=== PATIENT | female | born 1990 | race Caucasian/White ===

== ENCOUNTER → 2018-10-24 13:50 | Outpatient (CLI) | payer OTHER, SELFPAY ==
[2018-10-24 15:08] LABS: hCG Titer Quant., Serum 556 mIU/mL (<9 non-preg)
== END ==
PROVIDERS: Family Provider Family Medicine; PCP Family Medicine; Referring Provider Advanced Practice Midwife; Visit Provider Advanced Practice Midwife
DX: O20.0 Threatened abortion (principal); Z3A.00 Weeks of gestation of pregnancy not specified
CPT/HCPCS: 36415; 84702

== ENCOUNTER → 2018-10-26 13:36 | Outpatient (CLI) | payer OTHER, SELFPAY ==
[2018-03-14 11:46] VITALS: BMI 18.3
[2018-10-26 14:42] LABS: hCG Titer Quant., Serum 90 mIU/mL (<9 non-preg)
== END ==
PROVIDERS: Family Provider Family Medicine; PCP Family Medicine; Referring Provider Advanced Practice Midwife; Visit Provider Advanced Practice Midwife
DX: O20.0 Threatened abortion (principal); Z3A.00 Weeks of gestation of pregnancy not specified
CPT/HCPCS: 36415; 84702

== ENCOUNTER → 2018-11-02 09:59 | Outpatient (CLI) | payer OTHER, SELFPAY ==
[2018-11-02 11:48] LABS: hCG Titer Quant., Serum 6 mIU/mL (<9 non-preg)
== END ==
PROVIDERS: Family Provider Family Medicine; PCP Family Medicine; Referring Provider Advanced Practice Midwife; Visit Provider Advanced Practice Midwife
DX: O03.9 Complete or unspecified spontaneous abortion without complication (principal)
CPT/HCPCS: 36415; 84702

== ENCOUNTER → 2018-11-06 06:09 | Outpatient (CLI) | payer OTHER, SELFPAY ==
[2018-11-06 07:50] LABS: hCG Titer Quant., Serum 2 mIU/mL (<9 non-preg)
== END ==
PROVIDERS: Family Provider Family Medicine; PCP Family Medicine; Referring Provider Advanced Practice Midwife; Visit Provider Advanced Practice Midwife
DX: O03.9 Complete or unspecified spontaneous abortion without complication (principal)
CPT/HCPCS: 36415; 84702

== ENCOUNTER → 2019-01-08 10:00 | Outpatient (CLI) | payer OTHER, SELFPAY ==
[2019-01-08 11:09] VITALS: BMI 18.3
[2019-01-10 15:39] LABS: HPV Reflexed? NOT INDICATED
== END ==
PROVIDERS: Family Provider Family Medicine; PCP Family Medicine; Referring Provider Nurse Practitioner Women's Health; Visit Provider Nurse Practitioner Women's Health
DX: Z12.4 Encounter for screening for malignant neoplasm of cervix (principal)
CPT/HCPCS: 87624; 88175; G0145

== ENCOUNTER → 2019-09-16 12:55 | Outpatient (CLI) | payer OTHER, SELFPAY ==
[2019-09-16 11:41] VITALS: BMI 18.3
[2019-09-16 13:29] LABS: Absolute Lymphocyte Count 2.16 X10^3/uL (0.83-4.51); Absolute Neutrophil Count 5.9 X10^3/uL (2.0-7.7); Basophil# 0.03 X10^3/uL; Basophil% 0.3 % (0-1); Eosinophil# 0.04 X10^3/uL; Eosinophils% 0.5 % (0-5); Hematocrit 36.1 % (37-47); Hemoglobin 12.6 g/dL (12.0-15.0); Lymphocyte # 2.16 X10^3/ul (4.0); Mean Corp Hgb Conc 34.9 g/dL (32-36); Mean Corpuscular Hgb 29.9 pg (27.0-32.0); Mean Corpuscular Volume 85.5 fL (81-99); Mean Platelet Vol. 10.9 fl (6.2-12.0); Monocyte# 0.47 X10^3/uL; Monocyte% 5.4 % (0-10); NRBC Flagged by Analyzer 0 % (0-5); Neutrophil # 5.92 X10^3/uL (2.7-7.7); Neutrophil % 68.6 % (47-70); Platelet Count 237 K/mm3 (150-450); RBC Distribution Width CV 12.7 % (11.6-14.6); RBC Distribution Width SD 39.2 fl (35.1-43.9); Red Blood Count 4.22 M/mm3 (4.2-5.4); White Blood Count 8.6 K/mm3 (4.4-11.0)
[2019-09-16 15:01] LABS: HIV - WCH Non-Reactive (Nonreactive); Hepatitis B Surface Antigen Non-Reactive (Nonreactive); Rubella IgG 99.4 IU/mL
[2019-09-16 17:10] LABS: Chlamydia Trachomatis by PCR Negative (Negative); Neisserai gonorrhoeae by PCR Negative (Negative); Probe Check PASS; Sample Adequacy Control PASS; Specimen Processing Control PASS
[2019-09-19 01:53] LABS: Rapid Plasmin Reagin (RPR) NONREACTIVE (NONREACTIVE)
== END ==
PROVIDERS: Family Provider Family Medicine; PCP Family Medicine; Referring Provider Obstetrics & Gynecology; Visit Provider Obstetrics & Gynecology
DX: Z34.90 Encounter for supervision of normal pregnancy, unspecified, unspecified trimester (principal)
CPT/HCPCS: 36415; 85025; 86592; 86703; 86762; 86850; 86900; 86901; 87086; 87088; 87340; 87491; 87591

== ENCOUNTER → 2019-10-19 08:18 | Outpatient (CLI) | payer OTHER, SELFPAY ==
[2019-10-14 13:33] VITALS: BMI 18.3
--- NOTE | 2019-10-19 08:27 | US_ITS ---
STUDY: SECOND AND THIRD TRIMESTER OBSTETRICAL ULTRASOUND - LIMITED REASON FOR EXAM: Female, 29 years old vag bleeding with x 1 day LMP: 07/07/2019 PRIOR ULTRASOUND: None. TECHNIQUE: Transabdominal and Transvaginal TECHNICAL QUALITY: Adequate. FINDINGS: There is a single intrauterine fetus. The fetus is in a breech presentation. There is demonstrated cardiac activity with a heart rate of 144 bpm. There is a normal amniotic fluid volume by subjective analysis. The largest amniotic fluid pocket measures 3.1 cm. The placenta is anterior with a complete previa. There are Grade 0 placental changes. The cervix measures 3.6 cm in length. BIOMETRY: BPD: 2.6 cm: 14 weeks, 5 days HC: 10.3 cm: 14 weeks, 6 days AC: 8.5 cm: 14 weeks, 6 days FL: 1.6 cm: 14 weeks, 6 days Age by LMP: 14 weeks, 6 days. ALEXIA by LMP: 03/24/2020. age by current US: 15 weeks, 0 days. ALEXIA by current US: 04/11/2020. Estimated weight: 107 grams, +/- 16 grams, 33 percentile. Gender: Indeterminant US/OB Limited With Biometrics IMPRESSION: 1. Live intrauterine with estimated gestational age by ultrasound of 14 weeks and 6 days with estimated date of confinement of 04/12/2020. 2. Findings consistent with anterior placenta with complete previa. Electronically Signed: Reji Freitas DO at 10:10 EST , Service support ,
== END ==
PROVIDERS: Family Provider Family Medicine; PCP Family Medicine; Referring Provider Obstetrics & Gynecology; Visit Provider Obstetrics & Gynecology
DX: O46.90 Antepartum hemorrhage, unspecified, unspecified trimester (principal); Z3A.14 14 weeks gestation of pregnancy
CPT/HCPCS: 76816

== ENCOUNTER → 2020-01-20 08:41 | Outpatient (CLI) | payer OTHER, SELFPAY ==
[2020-01-06 10:55] VITALS: BMI 18.3
[2020-01-20 09:10] LABS: Absolute Lymphocyte Count 1.58 X10^3/uL (0.83-4.51); Absolute Neutrophil Count 4.8 X10^3/uL (2.0-7.7); Basophil# 0.03 X10^3/uL; Basophil% 0.4 % (0-1); Eosinophil# 0.06 X10^3/uL; Eosinophils% 0.9 % (0-5); Hematocrit 34.6 % (37-47); Hemoglobin 11.7 g/dL (12.0-15.0); Lymphocyte # 1.58 X10^3/ul (4.0); Lymphocyte % 23.1 % (19-41); Mean Corp Hgb Conc 33.8 g/dL (32-36); Mean Corpuscular Hgb 31.3 pg (27.0-32.0); Mean Corpuscular Volume 92.5 fL (81-99); Monocyte# 0.38 X10^3/uL; Monocyte% 5.6 % (0-10); NRBC Flagged by Analyzer 0 % (0-5); Neutrophil # 4.75 X10^3/uL (2.7-7.7); Neutrophil % 69.4 % (47-70); Platelet Count 211 K/mm3 (150-450); RBC Distribution Width CV 13.4 % (11.6-14.6); RBC Distribution Width SD 45.4 fl (35.1-43.9); Red Blood Count 3.74 M/mm3 (4.2-5.4); White Blood Count 6.8 K/mm3 (4.4-11.0)
[2020-01-20 09:34] LABS: Glucose Challenge Gest 1H 50g 109 mg/dL (70-140)
== END ==
PROVIDERS: Obstetrics & Gynecology; PCP Family Medicine; Referring Provider Nurse Practitioner Women's Health; Visit Provider Nurse Practitioner Women's Health
DX: Z34.90 Encounter for supervision of normal pregnancy, unspecified, unspecified trimester (principal)
CPT/HCPCS: 82950; 85025

== ENCOUNTER → 2020-01-20 09:35 | Outpatient (CLI) | payer OTHER, SELFPAY ==
[2020-01-06 10:55] VITALS: BMI 18.3
[2020-01-20 09:12] VITALS: BMI 18.3
--- NOTE | 2020-01-20 09:36 | US_ITS ---
STUDY: SECOND AND THIRD TRIMESTER OBSTETRICAL ULTRASOUND REASON FOR EXAM: Female, 29 years old growth -- previa -- rt pyelectasis LMP: 07/07/2019 TECHNIQUE: Transabdominal TECHNICAL QUALITY: Adequate. PRIOR ULTRASOUND: None. FINDINGS: There is a single intrauterine fetus. The fetus is in a breech presentation. There is demonstrated cardiac activity with a heart rate of 140 bpm. There is a normal amniotic fluid volume. The largest amniotic fluid pocket measures 5.1 cm. The amniotic fluid index (SHABNAM) is cm. The placenta is anterior in location and is not low lying. There are Grade 1 placental changes. The cervix measures 4.1 cm in length. The adnexal regions are not visualized. BIOMETRY: BPD: 6.9 cm: 27 weeks, 5 days HC: 26.2 cm: 28 weeks, 3 days AC: 25.5 cm: 29 weeks, 4 days FL: 5.3 cm: 28 weeks, 0 days CI: 76.53 FL/BPD: 76.48 FL/HC: 20.15 FL/AC: 20.69 HC/AC: 1.03 age by current US: 28 weeks, 1 days. ALEXIA by current US: 04/12/2020. Estimated weight: 1299 grams, +/- 192 grams, 60 %. Age by LMP: 28 weeks, 1 days. ALEXIA by LMP: 04/12/2020. Mild hydronephrosis of the right kidney measuring 6 mm. US/OB Limited With Biometrics IMPRESSION: 1. Living intrauterine of 28 weeks 1 day as described above. 2. Mild hydronephrosis of the right kidney. Electronically Signed: Jose Gerardo MD at 13:31 EDT Tel , Service support ,
== END ==
PROVIDERS: PCP Family Medicine; Referring Provider Nurse Practitioner Women's Health; Visit Provider Nurse Practitioner Women's Health
DX: O44.00 Complete placenta previa NOS or without hemorrhage, unspecified trimester (principal); Z3A.00 Weeks of gestation of pregnancy not specified
CPT/HCPCS: 76816

== ENCOUNTER → 2020-03-17 15:43 | Outpatient (CLI) | payer OTHER, SELFPAY ==
[2020-03-17 13:07] VITALS: BMI 18.3
== END ==
PROVIDERS: PCP Family Medicine; Referring Provider Obstetrics & Gynecology; Visit Provider Obstetrics & Gynecology
DX: Z34.81 Encounter for supervision of other normal pregnancy, first trimester (principal)
CPT/HCPCS: 87081

== ENCOUNTER 2020-04-12 06:56 | Inpatient (IN) | payer OTHER, SELFPAY ==
[2020-04-09 09:08] VITALS: BMI 18.3
[2020-04-12] VITALS (43 sets, daily range): BP systolic 66–122; BP diastolic 31–77; PULSE 68–127; RESP 14–16; TEMP 36.6–37.3; O2SAT 92–100; BMI 26.4
[2020-04-12] MEDS: Lactated Ringers 1,000 ML 50 ML IV (07:50)
[2020-04-12 08:14] LABS: Absolute Lymphocyte Count 2.14 X10^3/uL (0.83-4.51); Absolute Neutrophil Count 5.7 X10^3/uL (2.0-7.7); Basophil# 0.03 X10^3/uL; Basophil% 0.4 % (0-1); Eosinophil# 0.05 X10^3/uL; Eosinophils% 0.6 % (0-5); Hematocrit 37.9 % (37-47); Hemoglobin 12.9 g/dL (12.0-15.0); Lymphocyte # 2.14 X10^3/ul (4.0); Lymphocyte % 25.2 % (19-41); Mean Corpuscular Hgb 31.2 pg (27.0-32.0); Mean Corpuscular Volume 91.8 fL (81-99); Monocyte# 0.49 X10^3/uL; Monocyte% 5.8 % (0-10); NRBC Flagged by Analyzer 0 % (0-5); Neutrophil # 5.72 X10^3/uL (2.7-7.7); Neutrophil % 67.4 % (47-70); Platelet Count 184 K/mm3 (150-450); RBC Distribution Width CV 13.1 % (11.6-14.6); RBC Distribution Width SD 43.2 fl (35.1-43.9); Red Blood Count 4.13 M/mm3 (4.2-5.4); White Blood Count 8.5 K/mm3 (4.4-11.0)
[2020-04-12] MEDS: Lactated Ringers 500 ML 999 ML IV (08:38)
[2020-04-12] MEDS: fentaNYL-bupivacaine (epidural) 100 ML BAG EPIDURAL ×2 (09:15→13:34)
[2020-04-12 09:59] LABS: Probe Check PASS; Specimen Processing Control PASS
[2020-04-12] MEDS: Oxytocin 30 units/NS 500 ml 30 UNITS/500 ML IV.SOLN IV (11:39)
[2020-04-12] MEDS: Lactated Ringers 1,000 ML 200 ML IV (13:33)
--- NOTE | 2020-04-12 14:26 | PCM.HP.OB ---
- Problem List (1) Active labor at term Status: Acute (2) Status: Acute Qualifiers: Comment: carrier, genetic, ntd declined. anatomy reviewed (3) Pyelectasis of fetus on ultrasound Status: Acute Comment: right kidney 6mm. declines NIPT at this time (4) Supervision of normal Status: Acute Qualifiers: Comment: PRR ALEXIA 04/12/20 surprise PC Zoraida, Мария, Steve Vamsi History Date of Admission: 04/12/20 Final ALEXIA: 04/12/20 Gestational age: 40 Weeks and 0 Days History of this : This is a 29 year-old, G5, P3 at 40 weeks gestational age Zentz in active labor 4 cm dilated with regular contractions no vaginal bleeding or loss of fluid she admits good movement. She has had uncomplicated .. Allergies No Known Allergies Allergy (Verified 04/12/20 04:00) Home Medications: Home Medications Vits [Prenatabs FA ] 1 tab PO DAILY 11/01/13 Smoking Status: Never smoker Alcohol: None Number of Fetus(es): 1 NST - FHR Rate Baby A Baseline: 130 Variability:: Moderate Accelerations:: 15 x 15 Decelerations:: None NST Reactive:: Yes FHR Category:: Category I Uterine Activity:: Every 2 to 3 minutes History Past Pregnancies: Past Pregnancies Pregancy History 5 Elective abortions Hx Para 3 Spontaneous abortions 1 Hx # Term Pregnancies Ectopic pregnancies Hx # Pregnancies Multiple births # of living children Past Pregnancies Del. Date Name GA/Weeks Outcome Route Bth Weight Gen Labor Lgth Anesthesia Del [facility] Provider FOB 07/25/11 Zoraida 39 live - full term 7lbs 3oz Female 10 hours epidural [facility] Dr. Geovanni Agustin 11/12/13 Мария 39 live - full term 8lbs 6oz Female 10 hours epidural [facility] Dr. Geovanni Agustin 05/17/16 Steve 39 live - full term 7lbs 11oz Male 10 hours epidural [facility] Dr. Derick Agustin Delivery Date: 07/25/11 On 01/08/19 @ 10:37 Lesli Benton No issues during or delivery. Delivery Date: 11/12/13 On 01/08/19 @ 10:38 Lesli Benton No issues during or delivery. Delivery Date: 05/17/16 On 01/08/19 @ 10:39 Lesli Benton No issues during or delivery. Labs: Mom's Labs & Results 04/12/20 04/12/20 04/12/20 07:45 07:45 08:10 WBC 8.5 RBC 4.13 L Hgb 12.9 Hct 37.9 MCV 91.8 MCH 31.2 MCHC 34.0 RDW Std Deviation 43.2 RDW Coeff of Robb 13.1 Plt Count 184 MPV 11.0 Immature Gran % (Auto) 0.600 Neut % (Auto) 67.4 Lymph % (Auto) 25.2 [place] % (Auto) 5.8 Eos % (Auto) 0.6 Baso % (Auto) 0.4 Absolute Neuts (auto) 5.7 Absolute Lymphs (auto) 2.14 Nucleated RBC % 0 COVID-19 (NASIR) Negative Blood Type A POSITIVE Antibody Screen NEGATIVE Course Did the patient receive Yes care? Labs Blood Type: A RH: POSITIVE RPR/VDRL/Syphilis Nonreactive Rubella status Immune HbSAg Negative Date Done: 09/16/19 Chlamydia Negative Gonorrhea Negative HIV/AIDS Non-Reactive Group B Strep: Negative Current Obstetrical History Gestational Diabetes No Incompetent Cervix No Infertility No IUGR No Macrosomia No Hypertension/Pre-eclampsia No Placenta Previa/Abruption Yes: resolved PTL/PROM No Uterine anomaly No Oligohydramnios No Polyhydramnios No Multiple gestation No Past Medical History Asthma No Diabetes No Hypertension No Heart disease No Mitral valve prolapse No Neurologic/Seizure disorder/ No Migraines Kidney disease No Liver disease No Varicosities No Clotting disorders/Hx of DVT No Thyroid Dysfunction No Other medical diseases No Psychiatric disorders No Major trauma No Abnormal PAP smear No Sleep apnea No Mammogram in the last 2 years No Social History Marital Status: Alleged father Vamsi Hx Smoking No Smoking Status Never smoker Expected Infant Delivery Method: Spontaneous Vaginal Review of Systems Constitutional: Denies: Fever, Malaise Eyes: Denies: Blurred vision, Vision Change HEENT: Denies: Head Aches, Visual Changes Cardiovascular: Denies: Chest Pain, Palpitations Respiratory: Denies: Cough, Shortness of Breath, Wheezing Gastrointestinal: Denies: Abdominal Pain, Diarrhea, Nausea, Vomiting Genitourinary: Denies: Dysuria, Hematuria Musculoskeletal: Denies: Joint Pain, Muscle pain Skin: Denies: Lesions, Rash Neurological: Denies: Blurred vision, Focal weakness, Headaches Psychiatric: Denies: Anxiety, Depression Endocrine: Denies: Heat/ Cold Intolerance Hematologic/ Lymphatic: Denies: Easy Bruising, Easy Bleeding Physical Exam Vitals: Vital Signs Temp Pulse BP Pulse Ox 99.1 F 73 115/63 99 04/12/20 11:45 04/12/20 13:47 04/12/20 13:40 04/12/20 13:47 General: Alert, Cooperative, No apparent distress HEENT: Atraumatic, Normocephalic. Negative for: Thyromegaly, Lymphadenopathy Cardiovascular: Regular rate Lungs: Normal air movement Abdomen: Soft, Non Tender, Gravid Neurological: Deep Tendon Reflexes 2+/4 and Symmetrical, Neuro grossly intact. Negative for: Clonus SENIOR WEALTH ADVISOR: Normal external genitalia. Negative for: Vulvar lesions Estimated gestational size: Appropriate for gestational size Presentation: Cephalic Cervix Dilation (cm): 4 Station: -1 Effacement (%): 70 Assessment/Plan All Active Problems (Last Reviewed 04/09/20 @ 09:08 by Nelli Tiwari) Active labor at term (Acute) Pyelectasis of fetus on ultrasound (Acute) Supervision of normal (Acute) (Acute) Miscarriage (Resolved) Pharyngitis (Resolved) Placenta previa antepartum (Resolved) URI (upper respiratory infection) (Resolved) UTI (urinary tract infection) (Resolved) This is a 29 year-old, G 5P3 at 40 weeks gestational age presents in active labor. Patient presents IAL, plan expectant management for , Pitocin/AROM if needed. Pain management: Plans epidural. GBS negative. Management of any complications: None I have reviewed the [facility] and made any clinically relevant updates.
--- NOTE | 2020-04-12 14:31 | OP.PCM_ITS ---
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 anatomy reviewed (3) Pyelectasis of fetus on ultrasound Status: Acute Comment: right kidney 6mm. declines NIPT at this time (4) Supervision of normal Status: Acute Qualifiers: Comment: PRR ALEXIA 04/12/20 surprise PC Мария Conway Steve Vamsi Report of Operation Date of Procedure: 04/12/20 Vaginal Delivery Maternal Presentation: Active Labor 40 weeks IAL Method of Induction: Pitocin Amniotic Fluid Description: Clear Final ALEXIA: 04/12/20 Final ALEXIA Source: LMP Gestational age: 40 Weeks and 0 Days Date of Procedure: 04/12/20 Pre-Operative Diagnosis: ial Post-Operative Diagnosis: same Surgery/ Procedure Performed: Spontaneous Vaginal Delivery Type of Anesthesia: Epidural Description of Procedure: Patient began pushing and delivered the head in the PATRICIO presentation. The head was delivered atraumatically. The anterior and posterior shoulders delivered without complication followed by the rest of the infant and the was placed on the maternal abdomen. Delayed cord clamping was employed for approximately 60 seconds. Cord was clamped and cut and gentle traction was applied to the cord and the placenta delivered spontaneously immediately following it was noted to be intact with three-vessel cord. The perineum and vagina were inspected and noted to have no laceration. EBL was 100 cc. Patient and tolerated delivery well. Placental Delivery Description: Spontaneous Placenta Disposition: [facility] Cord Vessel Description: 3 Vessels Cord Entanglement: None Estimated Blood Loss: 100 Infant A gender: Male Episiotomy Description: None Laceration: None Medications given after delivery: IV Pitocin Complications: None Multi Select Codes - Urinary/Genital Urinary/Genital CPT Codes: 94759 Vaginal Delivery [facility]
[2020-04-12] MEDS: Oxytocin 30 units/NS 500 ml 30 UNITS/500 ML IV.SOLN 334 UNITS IV (14:58)
[2020-04-12] MEDS: Naproxen 250 MG Tablet 500 MG PO (20:49)
[2020-04-13] VITALS (7 sets, daily range): BP systolic 105–109; BP diastolic 64–71; PULSE 80–84; RESP 16–20; TEMP 36.3–36.6
[2020-04-13] MEDS: Acetaminophen 500 MG Tablet 1000 MG PO (03:27)
--- NOTE | 2020-04-13 08:14 | DCINST_ITS ---
Discharge Diet: No Restrictions Discharge Activity: Return to Normal Activity, May not drive while taking narcotic pain medications., May Shower May resume sexual activity in: 4-6 weeks Call your doctor if your incision/area has: Continuous Slow Oozing, Sudden Increased Bleeding, Increased Pain/ Swelling, Increased Redness, Foul Smelling Discharge Additional Instructions: If you experience any of the following, contact your healthcare provider. * Bleeding that soaks a pad every hour for 2 hours * Fever 100.4 or higher * Unrelieved incision or abdominal pain * Swelling, redness, discharge or bleeding from your incision or episiotomy site * Your incision begins to separate * Problems urinating (including inability to urinate or burning while urinating). * Visual changes * Severe headache * Flu-like symptoms * Pain or redness in one of both of your breasts * Pain, warmth, tenderness or swelling in your legs, especially the calf area * Frequent nausea and vomiting * Symptoms of depression or anxiety If you experience any of the following, call 911 or go to the nearest Emergency Room. * Chest pain * Problems breathing * Seizure activity * Partial or complete paralysis of a body part, slurred speech, weakness or drooping of the face, or a sudden inability to walk or hold your balance Allergies/Adverse Reactions: Allergies No Known Allergies Allergy (Verified 04/12/20 04:00) Medications to take at Discharge Vits [Prenatabs FA ] 1 tab PO DAILY 11/01/13 Ibuprofen [Motrin] 600 mg PO Q6H PRN PRN #30 tab 04/13/20 Naproxen [Naprosyn] 250 - 500 mg PO Q8H PRN PRN #30 tab 04/13/20 The following prescriptions were given: Ibuprofen [Motrin] 600 mg PO Q6H PRN PRN #30 tab PRN Reason: Pain Transmission Status: Pending to [facility] Naproxen [Naprosyn] 250 - 500 mg PO Q8H PRN PRN #30 tab PRN Reason: MILD PAIN Transmission Status: Pending to [id number] Please Follow Up With: Susy Bundy MD - [phone] When: Call to make an appointment with your doctor in 6 weeks. If you had elevated Blood pressure or 4th degree laceration you will need to be seen in 2 weeks. Primary Care Physician: Jose Roberto Merchant MD [Primary Care Provider] - Test Results: Test results from this visit will be discussed in further detail at your follow- up appointment, if applicable.
--- NOTE | 2020-04-13 08:14 | PCM.DCVAG ---
Discharge Diet: No Restrictions Discharge Activity: Return to Normal Activity, May not drive while taking narcotic pain medications., May Shower May resume sexual activity in: 4-6 weeks Call your doctor if your incision/area has: Continuous Slow Oozing, Sudden Increased Bleeding, Increased Pain/ Swelling, Increased Redness, Foul Smelling Discharge Additional Instructions: If you experience any of the following, contact your healthcare provider. Bleeding that soaks a pad every hour for 2 hours Fever 100.4 or higher Unrelieved incision or abdominal pain Swelling, redness, discharge or bleeding from your incision or episiotomy site Your incision begins to separate Problems urinating (including inability to urinate or burning while urinating). Visual changes Severe headache Flu-like symptoms Pain or redness in one of both of your breasts Pain, warmth, tenderness or swelling in your legs, especially the calf area Frequent nausea and vomiting Symptoms of depression or anxiety If you experience any of the following, call 911 or go to the nearest Emergency Room. Chest pain Problems breathing Seizure activity Partial or complete paralysis of a body part, slurred speech, weakness or drooping of the face, or a sudden inability to walk or hold your balance Allergies/Adverse Reactions: Allergies No Known Allergies Allergy (Verified 04/12/20 04:00) Medications to take at Discharge Vits [Prenatabs FA ] 1 tab PO DAILY 11/01/13 Ibuprofen [Motrin] 600 mg PO Q6H PRN PRN #30 tab 04/13/20 Naproxen [Naprosyn] 250 - 500 mg PO Q8H PRN PRN #30 tab 04/13/20 The following prescriptions were given: Ibuprofen [Motrin] 600 mg PO Q6H PRN PRN #30 tab PRN Reason: Pain Transmission Status: Pending to [facility] Naproxen [Naprosyn] 250 - 500 mg PO Q8H PRN PRN #30 tab PRN Reason: MILD PAIN Transmission Status: Pending to [id number] Please Follow Up With: Susy Bundy MD - [phone] When: Call to make an appointment with your doctor in 6 weeks. If you had elevated Blood pressure or 4th degree laceration you will need to be seen in 2 weeks. Primary Care Physician: Jose Roberto Merchant MD [Primary Care Provider] - Test Results: Test results from this visit will be discussed in further detail at your follow-up appointment, if applicable.
--- NOTE | 2020-04-13 08:14 | PCM.PN.OB ---
Patient Problems: Active and Suspected Problems (Last Reviewed 04/09/20 @ 09:08 by Nelli Tiwari) Active labor at term (Acute) Subjective: doing well no complaints pain controlled no CP SOB N V ambulating well tolerating po lochia moderate, going well - Physical Exam Vitals/I&O's: Vital Signs Temp Pulse Resp BP Pulse Ox 97.5 F L 84 16 109/64 100 04/13/20 07:47 04/13/20 07:47 04/13/20 03:28 04/13/20 07:47 04/12/20 15:17 Oxygen Delivery Method Room Air Weight: 135 lb Body Mass Index (BMI) 26.4 Intake and Output for Last 24 Hours 04/11/20 04/12/20 04/13/20 23:59 23:59 23:59 Intake Total 2215.06 / 2215.06 Output Total 2600 / 2600 350 / 350 Balance -384.94 / -384.94 -350 / -350 General: Alert, Oriented x3 Laboratory Results 04/12/20 07:45: WBC 8.5, RBC 4.13 L, Hgb 12.9, Hct 37.9, MCV 91.8, MCH 31.2, MCHC 34.0, RDW Std Deviation 43.2, RDW Coeff of Robb 13.1, Plt Count 184, MPV 11.0, Immature Gran % (Auto) 0.600, Neut % (Auto) 67.4, Lymph % (Auto) 25.2, [place] % (Auto) 5.8, Eos % (Auto) 0.6, Baso % (Auto) 0.4, Absolute Neuts (auto) 5.7, Absolute Lymphs (auto) 2.14, Nucleated RBC % 0 04/12/20 07:45: Blood Type A POSITIVE, Antibody Screen NEGATIVE 04/12/20 08:10: COVID-19 (NASIR) Negative Current Medications Acetaminophen (Tylenol) 1,000 mg PO Q8H PRN PRN PRN Reason: Pain Score 1-3/10 Last Admin: 04/13/20 03:27 Dose: 1,000 mg Documented by: Bisacodyl (Dulcolax) 10 mg RECTAL UD PRN PRN Reason: If no BM Dibucaine (Dibucaine) 1 applic TOPICAL TID PRN PRN; Protocol PRN Reason: Discomfort Hydrocortisone (Hytone) 1 applic TOPICAL TID PRN PRN; Protocol PRN Reason: Discomfort Methylergonovine Maleate (Methergine) 0.2 mg IM X1 PRN PRN Reason: Excess bleeding/uterine atony Naproxen (Naprosyn) 500 mg PO Q8H PRN PRN PRN Reason: Pain Score 1-3/10 Last Admin: 04/12/20 20:49 Dose: 500 mg Documented by: Ondansetron HCl (Zofran) 4 mg IV Q4H PRN PRN PRN Reason: Nausea Oxycodone HCl (Oxyir) 5 - 10 mg PO Q4H PRN PRN PRN Reason: Pain Score 4-10/10 Multivit/Folic Acid/Iron (Prenatabs Fa) 1 tablet PO DAILY@1200 ED Senna/Docusate Sodium (Senokot-S, Iesha-Colace) 1 - 2 tablet PO DAILY PRN PRN PRN Reason: Constipation Simethicone (Mylicon) 80 mg PO PCHS PRN PRN Reason: Indigestion/Stomach pain Sodium Chloride () 5 - 15 ml IV UD PRN PRN Reason: SALINE FLUSH Medical Necessity - Tobacco Use Smoking Status: Never smoker Assessment/Plan All Active Problems (Last Reviewed 04/09/20 @ 09:08 by Nelli Tiwari) Active labor at term (Acute) Pyelectasis of fetus on ultrasound (Acute) Supervision of normal (Acute) (Acute) Miscarriage (Resolved) Pharyngitis (Resolved) Placenta previa antepartum (Resolved) URI (upper respiratory infection) (Resolved) UTI (urinary tract infection) (Resolved) s/p PPD # 1 1. routine post delivery care 2. breast feeding- support given 3. rh positive 4. rubella immune
[2020-04-13] MEDS: Prenatal Vits Tablet 1 TABLET PO (11:51)
== END 2020-04-13 17:00 | disposition home or self-care (01) | DRG 806 ==
LOC: WPOUT 07:00 → WP 07:00
PROVIDERS: Admitting Provider Obstetrics & Gynecology; PCP Family Medicine; Visit Provider Obstetrics & Gynecology
DX: O99.89 Other specified diseases and conditions complicating pregnancy, childbirth and the puerperium (principal); N13.30 Unspecified hydronephrosis; Z37.0 Single live birth; Z3A.40 40 weeks gestation of pregnancy
CPT/HCPCS: 59025; 59050; 85025; 86850; 86900; 86901; 87635; 99218; J7120; G0378; U0003

== ENCOUNTER → 2022-06-23 | Outpatient (CLI) | payer OTHER, SELFPAY ==
[2022-07-02 16:38] LABS: HPV APTIMA, High Risk Negative (Negative)
== END | disposition home or self-care (01) ==
LOC: LABSPEC 06-24 07:24
PROVIDERS: PCP Family Medicine; Visit Provider Obstetrics & Gynecology
DX: Z12.4 Encounter for screening for malignant neoplasm of cervix (principal)
CPT/HCPCS: 87624; 88175; G0145

== ENCOUNTER → 2023-05-19 | Outpatient (CLI) | payer OTHER, SELFPAY ==
[2023-05-22 22:07] LABS: Chlamydia By Nucleic Acid AMP Negative (Negative); Gonococcus By Nucleic Acid AMP Negative (Negative)
== END | disposition home or self-care (01) ==
PROVIDERS: PCP Family Medicine; Referring Provider Advanced Practice Midwife; Visit Provider Advanced Practice Midwife
DX: Z34.90 Encounter for supervision of normal pregnancy, unspecified, unspecified trimester (principal)
CPT/HCPCS: 87086; 87491; 87591

== ENCOUNTER → 2023-05-26 | Outpatient (CLI) | payer OTHER, SELFPAY ==
--- NOTE | 2023-05-26 16:23 | US_ITS ---
EXAM: US FIRST TRIMESTER , TRANSABDOMINAL CLINICAL INDICATION: dating TECHNIQUE: Real-time transabdominal obstetrical ultrasound of the maternal pelvis and a first trimester with image documentation. COMPARISON: None this . FINDINGS: UTERUS/CERVIX: Uterus is 10.5 cm x 6.6 cm x 8.7 cm. There is an intrauterine gestation sac eccentric to the right in the fundus but apparently surrounded by endometrium. Mean sac diameter of 3.0 cm corresponds to 8 weeks 1 days gestation. Small yolk sac of 4 mm and 2.3 cm pole, CRL consistent with 8 weeks 5 days gestation. heart rate 169 bpm. OVARIES: Right ovary 2.7 cm x 1.4 cm x 2.9 cm with documented blood flow and anechoic cystic structure of 1.2 cm. Left ovary 2.2 cm x 1.3 cm x 2 cm with documented peripheral blood flow,. FREE FLUID: No free fluid. US/Init OB < 14Wks US IMPRESSION: Single live intrauterine . Sonographic estimated age 8 weeks 3 days. No complications identified. Electronically Signed: Sidra Fam MD at 8:51 EDT ,
== END | disposition home or self-care (01) ==
LOC: US 16:23
PROVIDERS: PCP Family Medicine; Referring Provider Advanced Practice Midwife; Visit Provider Advanced Practice Midwife
DX: O09.90 Supervision of high risk pregnancy, unspecified, unspecified trimester (principal); Z3A.00 Weeks of gestation of pregnancy not specified
CPT/HCPCS: 76801

== ENCOUNTER → 2023-07-11 | Outpatient (CLI) | payer OTHER, SELFPAY ==
[2023-07-11 11:05] LABS: Absolute Lymphocyte Count 1.78 X10^3/uL (0.83-4.51); Absolute Neutrophil Count 5.8 X10^3/uL (2.0-7.7); Basophil# 0.03 X10^3/uL; Basophil% 0.4 % (0-1); Eosinophil# 0.04 X10^3/uL; Eosinophils% 0.5 % (0-5); Hematocrit 35.5 % (37-47); Hemoglobin 12.4 g/dL (12.0-15.0); Lymphocyte # 1.78 X10^3/ul (0.83-4.51); Lymphocyte % 21.7 % (19-41); Mean Corp Hgb Conc 34.9 g/dL (32-36); Mean Corpuscular Hgb 30.4 pg (27.0-32.0); Mean Platelet Vol. 10.5 fl (6.2-12.0); Monocyte# 0.48 X10^3/uL; Monocyte% 5.9 % (0-10); NRBC Flagged by Analyzer 0 % (0-5); Neutrophil # 5.84 X10^3/uL (2.7-7.7); Neutrophil % 71.1 % (47-70); Platelet Count 276 K/mm3 (150-450); RBC Distribution Width CV 13.2 % (11.6-14.6); RBC Distribution Width SD 41.5 fl (35.1-43.9); Red Blood Count 4.08 M/mm3 (4.2-5.4); White Blood Count 8.2 K/mm3 (4.4-11.0)
[2023-07-11 12:07] LABS: HIV - WCH Non-Reactive (Nonreactive); Hepatitis B Surface Antigen Non-Reactive (Nonreactive); Hepatitis C Antibody Non-Reactive (Nonreactive); Rubella IgG Reactive (Nonreactive); Syphilis Antibodies Non-reactive
== END | disposition home or self-care (01) ==
PROVIDERS: PCP Family Medicine; Referring Provider Advanced Practice Midwife; Visit Provider Advanced Practice Midwife
DX: O09.90 Supervision of high risk pregnancy, unspecified, unspecified trimester (principal); Z3A.00 Weeks of gestation of pregnancy not specified
CPT/HCPCS: 36415; 85025; 86703; 86762; 86780; 86803; 86850; 86900; 86901; 87340

== ENCOUNTER → 2023-08-09 | Outpatient (CLI) | payer OTHER, SELFPAY ==
--- NOTE | 2023-08-09 12:16 | US_ITS ---
INDICATION: anatomy EXAMINATION: Ultrasound US OB Transvaginal TECHNIQUE: Transabdominal pelvic ultrasound was performed. COMPARISON: Prior study dated: 05/26/2023. LMP: Unknown. Beta-hCG: Unknown. Provided EGA: None. FINDINGS: INTRAUTERINE GESTATION(s): Single. HEART MOTION is 150 bpm. BIOMETRIC MEASUREMENTS: HEAD CIRCUMFERENCE: 17.4 cm cm which corresponds to 19 weeks and 6 days. BIPARIETAL DIAMETER: 4.7 cm cm which corresponds to 20 weeks and 2 days. ABDOMINAL CIRCUMFERENCE: 15.5 cm cm which corresponds to 20 weeks and 5 days. FEMORAL LENGTH: 3.2 cm cm which corresponds to 20 weeks. ESTIMATED DUE DATE (ALEXIA): 20 weeks and 1 day ESTIMATED WEIGHT: 350 g +/- 53 g, 81 %tile. PRESENTATION: Breech but variable. AMNIOTIC FLUID INDEX (SHABNAM): Within normal limits but not measured, the largest fluid pocket measures 8.9 cm. BIOPHYSICAL PROFILE (BPP): Not assessed. PLACENTA: Posterior. There is no placenta previa or abruption. CERVIX: The cervix measures 4.1 cm in length. MATERNAL OVARIES: Not seen. FREE FLUID: None. ANATOMY: LATERAL VENTRICLES: Visualized CHOROID PLEXUS: Visualized. MIDLINE FALX: Visualized. CAVUM SEPTUM PELLUCIDI: Visualized. CEREBELLUM: Unremarkable CISTERNA MAGNA: Visualized measuring 5 mm. UPPER LIP: Intact. FOUR CHAMBER HEART VIEW: Unremarkable. STOMACH: Visualized. KIDNEYS: Visualized, no hydronephrosis. URINARY BLADDER: Visualized. UMBILICAL CORD INSERTION into the abdomen: Unremarkable. UMBILICAL CORD vessel number: Normal three vessel cord. SPINE: No posterior spinal defect observed. UPPER AND LOWER EXTREMITIES: Present. GENDER: Not assessed. IMPRESSION: Single live intrauterine with an estimated gestational age of 20 weeks and 1 day. The ALEXIA is 12/26/2023. Electronically Signed: Jet Gomes MD at 10:51 EDT , INDICATION: anatomy EXAMINATION: Ultrasound US OB Transvaginal TECHNIQUE: Transabdominal pelvic ultrasound was performed. COMPARISON: Prior study dated: 05/26/2023. LMP: Unknown. Beta-hCG: Unknown. Provided EGA: None. FINDINGS: INTRAUTERINE GESTATION(s): Single. HEART MOTION is 150 bpm. BIOMETRIC MEASUREMENTS: HEAD CIRCUMFERENCE: 17.4 cm cm which corresponds to 19 weeks and 6 days. BIPARIETAL DIAMETER: 4.7 cm cm which corresponds to 20 weeks and 2 days. ABDOMINAL CIRCUMFERENCE: 15.5 cm cm which corresponds to 20 weeks and 5 days. FEMORAL LENGTH: 3.2 cm cm which corresponds to 20 weeks. ESTIMATED DUE DATE (ALEXIA): 20 weeks and 1 day ESTIMATED WEIGHT: 350 g +/- 53 g, 81 %tile. PRESENTATION: Breech but variable. AMNIOTIC FLUID INDEX (SHABNAM): Within normal limits but not measured, the largest fluid pocket measures 8.9 cm. BIOPHYSICAL PROFILE (BPP): Not assessed. PLACENTA: Posterior. There is no placenta previa or abruption. CERVIX: The cervix measures 4.1 cm in length. MATERNAL OVARIES: Not seen. FREE FLUID: None. ANATOMY: LATERAL VENTRICLES: Visualized CHOROID PLEXUS: Visualized. MIDLINE FALX: Visualized. CAVUM SEPTUM PELLUCIDI: Visualized. CEREBELLUM: Unremarkable CISTERNA MAGNA: Visualized measuring 5 mm. UPPER LIP: Intact. FOUR CHAMBER HEART VIEW: Unremarkable. STOMACH: Visualized. KIDNEYS: Visualized, no hydronephrosis. URINARY BLADDER: Visualized. UMBILICAL CORD INSERTION into the abdomen: Unremarkable. UMBILICAL CORD vessel number: Normal three vessel cord. SPINE: No posterior spinal defect observed. UPPER AND LOWER EXTREMITIES: Present. GENDER: Not assessed. US/OB Anatomy Scan IMPRESSION: Single live intrauterine with an estimated gestational age of 20 weeks and 1 day. The ALEXIA is 12/26/2023. Electronically Signed: Jet Gomes MD at 10:50 EDT ,
== END | disposition home or self-care (01) ==
LOC: OPUS 12:13
PROVIDERS: PCP Family Medicine; Referring Provider Obstetrics & Gynecology; Visit Provider Obstetrics & Gynecology
DX: O09.90 Supervision of high risk pregnancy, unspecified, unspecified trimester (principal); Z3A.00 Weeks of gestation of pregnancy not specified
CPT/HCPCS: 76805; 76817

== ENCOUNTER → 2023-10-03 | Outpatient (CLI) | payer OTHER, SELFPAY ==
[2023-10-03 09:29] LABS: Absolute Lymphocyte Count 1.76 X10^3/uL (0.83-4.51); Absolute Neutrophil Count 4.8 X10^3/uL (2.0-7.7); Basophil# 0.03 X10^3/uL; Basophil% 0.4 % (0-1); Eosinophil# 0.04 X10^3/uL; Eosinophils% 0.6 % (0-5); Hematocrit 35.1 % (37-47); Hemoglobin 11.5 g/dL (12.0-15.0); Lymphocyte # 1.76 X10^3/ul (0.83-4.51); Lymphocyte % 24.9 % (19-41); Mean Corp Hgb Conc 32.8 g/dL (32-36); Mean Corpuscular Hgb 30.3 pg (27.0-32.0); Mean Corpuscular Volume 92.4 fL (81-99); Mean Platelet Vol. 10.3 fl (6.2-12.0); Monocyte# 0.38 X10^3/uL; Monocyte% 5.4 % (0-10); NRBC Flagged by Analyzer 0 % (0-5); Neutrophil # 4.82 X10^3/uL (2.7-7.7); Neutrophil % 68.1 % (47-70); Platelet Count 216 K/mm3 (150-450); RBC Distribution Width CV 13.7 % (11.6-14.6); RBC Distribution Width SD 46.5 fl (35.1-43.9); White Blood Count 7.1 K/mm3 (4.4-11.0)
[2023-10-03 09:47] LABS: Glucose Challenge Gest 1H 50g 119 mg/dL (70-140)
[2023-10-03 10:21] LABS: HIV - WCH Non-Reactive (Nonreactive); Syphilis Antibodies Non-reactive
== END | disposition home or self-care (01) ==
LOC: PAVLAB 09:01
PROVIDERS: PCP Family Medicine; Referring Provider Obstetrics & Gynecology; Visit Provider Obstetrics & Gynecology
DX: O09.90 Supervision of high risk pregnancy, unspecified, unspecified trimester (principal); Z3A.00 Weeks of gestation of pregnancy not specified
CPT/HCPCS: 36415; 82950; 85025; 86703; 86780

== ENCOUNTER → 2023-12-05 | Outpatient (CLI) | payer OTHER, SELFPAY | END | disposition home or self-care (01) | LOC: LABSPEC 12:01 | PROVIDERS: PCP Family Medicine; Referring Provider Obstetrics & Gynecology; Visit Provider Obstetrics & Gynecology | DX: O09.90 Supervision of high risk pregnancy, unspecified, unspecified trimester (principal); Z3A.00 Weeks of gestation of pregnancy not specified | CPT/HCPCS: 87081 ==

== ENCOUNTER 2024-01-01 12:25 | Inpatient (IN) | payer OTHER, SELFPAY ==
[2024-01-01] VITALS (39 sets, daily range): BP systolic 104–137; BP diastolic 61–87; PULSE 64–95; RESP 16–20; TEMP 36.3–37.1; O2SAT 98–100; BMI 26.6
[2024-01-01] MEDS: Lactated Ringers 1,000 ML 50 ML IV (13:15)
[2024-01-01 13:37] LABS: Absolute Lymphocyte Count 1.95 X10^3/uL (0.83-4.51); Absolute Neutrophil Count 5.4 X10^3/uL (2.0-7.7); Basophil# 0.04 X10^3/uL; Basophil% 0.5 % (0-1); Eosinophil# 0.06 X10^3/uL; Eosinophils% 0.8 % (0-5); Hematocrit 36.1 % (37-47); Hemoglobin 12.3 g/dL (12.0-15.0); Lymphocyte # 1.95 X10^3/ul (0.83-4.51); Lymphocyte % 24.8 % (19-41); Mean Corp Hgb Conc 34.1 g/dL (32-36); Mean Corpuscular Hgb 30.4 pg (27.0-32.0); Mean Corpuscular Volume 89.1 fL (81-99); Mean Platelet Vol. 11.4 fl (6.2-12.0); Monocyte# 0.42 X10^3/uL; Monocyte% 5.3 % (0-10); NRBC Flagged by Analyzer 0 % (0-5); Neutrophil # 5.38 X10^3/uL (2.7-7.7); Neutrophil % 68.3 % (47-70); Platelet Count 212 K/mm3 (150-450); RBC Distribution Width CV 12.6 % (11.6-14.6); RBC Distribution Width SD 41.7 fl (35.1-43.9); Red Blood Count 4.05 M/mm3 (4.2-5.4); White Blood Count 7.9 K/mm3 (4.4-11.0)
--- NOTE | 2024-01-01 13:46 | PCM.HP.OB ---
HPI - General General Date of Admission: 01/01/24 HPI Narrative MARLIN SARABIA, is a 33 F who presents at 40.3 with contractions this morning, something just felt off and presented for labor check. +fm. denies lof/vb Maternal Data Information ALEXIA Calculator Estimated Delivery Date Method Current WG Current Estimate 12/29/23 LMP (Certain) 40w 3d Other Estimates 12/31/23 Ultrasound #1 40w 1d PFSH PFSH Medical History (Updated 01/01/24 @ 14:45 by Kelsey Florentino CNM) Shoulder dystocia, delivered Home Medications prenat.vits,lacey,uqh-imll-visuw 1 tab PO DAILY 06/23/22 [History Last Taken 12/31/23] promethazine 12.5 mg tablet 12.5 mg PO Q6H PRN nausea and vomiting #60 tabs 05/19/23 [Rx Last Taken Unknown] ondansetron 4 mg disintegrating tablet 4 mg PO Q4H PRN nausea and vomiting #30 tabs 07/11/23 [Rx Last Taken Unknown] Allergy/AdvReac Type Severity Reaction Status Date / Time No Known Allergies Allergy Verified 12/28/23 15:24 Family History Grandmother Diabetes Rectal cancer Father Colon cancer Surgical History (Updated 01/01/24 @ 13:38 by Casandra Billingsley) [place] teeth removed Social History adopted: No household members: family housing: house number of children: 4 current occupational status: unemployed current occupation: [employer] pets and animals: No history of recent travel: No sexually active: Yes Smoking Status: Never smoker alcohol intake: never substance use type: does not use caffeine: Yes what type of physical activity do you participate in: none seatbelt use: always do you feel safe at home: Yes additional social history: [employer] Patient is stay at home mom History 6 Elective abortions Hx Para 4 Spontaneous abortions 1 Hx # Term Pregnancies Ectopic pregnancies Hx # Pregnancies Multiple births # of living children 4 Past Pregnancies Del. Date Name GA/Weeks Outcome Route Bth Weight Infant Gen Labor Lgth Anesthesia Del Locatn Provider FOB 07/25/11 Zoraida 39 live - full term 7lbs 3oz Female 10 hours epidural [facility] Dr. Geovanni Agustin 11/12/13 Мария 39 live - full term 8lbs 6oz Female 10 hours epidural [facility] Dr. Geovanni Agustin 05/17/16 Steve 39 live - full term 7lbs 11oz Male 10 hours epidural [facility] Dr. Derick Agustin 04/12/20 Bin 40 live - full term Male epidural [facility] EMIR Delivery Date: 07/25/11 Last Updated by: Lesli Benton No issues during or delivery. Delivery Date: 11/12/13 Last Updated by: Lesli Benton No issues during or delivery. Delivery Date: 05/17/16 Last Updated by: Lesli Benton No issues during or delivery. Visit Details Expected Delivery Route/Plan Labor Preferences- CB/BF classes: no labor support person: Vamsi labor intervention preferences: [] pain management options preferred: epidural if requested cut cord/dad catch: yes : yes PP control planned: discussed discussed possible routes of delivery and associated risks: [] special requests: [] Plans Covid status: declined Flu vaccine: declined Tdap vaccine: given Rhogam: NA LARC form signed: declined movement and labor precautions reviewed. Problem list reviewed and updated with the most current plan of care details and appropriate orders placed. Relevant counseling for the gestational age provided. Continue routine care and follow up unless otherwise noted in visit notes/problem list details OB Flowsheet Initial Weight: Not Recorded Date <del>?</del> EGA Weight BP Urine Prot <del>?</del> Glucose FHR FuHt Pres Dilation <del>?</del> Effaced St Visit Note 05/19/23 <del>?</del> 8w 0d 108 lb 112/70 Negative <del>?</del> Negative <del>?</del> KW-handheld US. CRL was 1.44cm =7.6 weeks. formal US ordered for verification. heartbeat visualized. 06/14/23 <del>?</del> 11w 5d 108 lb 128/85 Negative <del>?</del> Negative 153 <del>?</del> JV- no cramping or bleeding. ultrasound at hospital confirmed a normal IUP measuring 8w1d on 05/26. 07/11/23 <del>?</del> 15w 4d 109 lb 6 oz 112/68 Negative <del>?</del> Negative 158 <del>?</del> MH-No VB. Nausea persists. Zofran sent. Declines flu. Will do PN labs today 08/07/23 <del>?</del> 19w 3d 114 lb 8 oz 102/66 Negative <del>?</del> Negative 143 <del>?</del> LC- no vb/cramping. feeling flutters. [facility] anatomy on 08/09. +varicose veins up to groin/labia. will obtain compression stockings. 09/04/23 <del>?</del> 23w 3d 120 lb 6 oz 113/75 Negative <del>?</del> Negative 140 <del>?</del> JV- no lof, vaginal bleeding, or cramping. 10/03/23 <del>?</del> 27w 4d 127 lb 126/78 Negative <del>?</del> Negative 140 27 <del>?</del> SM- no vb lof good fm no regualr ctx tdap given larc signed cbc gct drawn PRR reviewed 10/18/23 <del>?</del> 29w 5d 127 lb 107/73 <del>?</del> 151 <del>?</del> MH-No VB, LOF. Good Fm. Denies concerns 10/31/23 <del>?</del> 31w 4d 131 lb 118/72 Negative <del>?</del> Negative 135 31 <del>?</del> SM- no vb lof good fm no regular ctx varicose veins not bothering her now 11/17/23 <del>?</del> 34w 0d 133 lb 8 oz 115/69 Negative <del>?</del> Negative 135 34 <del>?</del> LC- no concerns, no vb/ctx/lof. good fm. 11/28/23 <del>?</del> 35w 4d 135 lb 2 oz 119/78 Negative <del>?</del> Negative 138 36 <del>?</del> JV- no lof, vaginal bleeding, or dec fm. plan gbs next visit. 12/05/23 <del>?</del> 36w 4d 136 lb 126/79 Negative <del>?</del> Negative 145 37 Cephalic <del>?</del> SM- no vb lof good fm no regular ctxgbs done declines vag exam 12/13/23 <del>?</del> 37w 5d 135 lb 4 oz 114/73 Negative <del>?</del> Negative 140 37.5 Cephalic <del>?</del> JV- no lof, vaginal bleeding, or dec fm. GBS neg. 12/19/23 <del>?</del> 38w 4d 138 lb 8 oz 117/76 Negative <del>?</del> Negative 120 38 Cephalic <del>?</del> KW- no vb/lof/ctx. good fm. declines VE today. 12/26/23 <del>?</del> 39w 4d 137 lb 8 oz 130/89 Negative <del>?</del> Negative 145 39 Cephalic 2 <del>?</del> 80 -2 -3 JV- no lof, vaginal bleeding, or dec fm. rto in 2-3 days for rpt bp check and possible membrane stripping. 12/28/23 <del>?</del> 39w 6d 138 lb 118/80 Negative <del>?</del> Negative 138 38 Cephalic 4 <del>?</del> 80 -2 KW- no vb/lof/ctx. good fm. membrane sweep today NST FHR Rate Baby A Baseline: 140-150 Variability:: Moderate Accelerations:: 15 x 15 Decelerations:: Late (x3 ) NST Reactive:: Non-Reactive FHR Category:: Category II Uterine Activity:: irregular ROS Cardiovascular Cardiovascular: Denies abdominal pain, chest pain, diaphoresis or dyspnea Respiratory/Chest Respiratory/Chest: Denies change in mental status, chest congestion, chest tightness, cough, shortness of breath at rest, shortness of breath with exertion, breast mass, breast pain, breast skin changes, breast swelling, change in breast shape or nipple discharge Genitourinary Genitourinary: Reports change in urinary stream Musculoskeletal Musculoskeletal: Reports none Integumentary Integumentary: Reports none Neurologic Neurologic: Reports none Psychiatric Psychiatric: Reports none Endocrine Endocrinology: Reports none Hematologic/Lymphatic Hematologic/Lymphatic: Reports none Allergic/Immunologic Allergic/Immunologic: Reports none Vital Signs Vital Signs Vital Signs: 01/01/24 10:40 01/01/24 10:40 01/01/24 10:41 Temperature Temperature Source Pulse Rate 82 87 Respiratory Rate Blood Pressure 124/86 H BP Systolic 124 BP Diastolic 86 Pulse Ox 01/01/24 10:41 01/01/24 12:20 01/01/24 12:20 Temperature Temperature Source Pulse Rate 88 Respiratory Rate Blood Pressure 122/84 H BP Systolic 122 BP Diastolic 84 Pulse Ox 99 01/01/24 13:40 01/01/24 13:40 01/01/24 13:40 Temperature 98.4 F Temperature Source Temporal Pulse Rate Respiratory Rate 18 Blood Pressure BP Systolic BP Diastolic Pulse Ox 01/01/24 13:43 01/01/24 13:43 Temperature Temperature Source Pulse Rate 80 Respiratory Rate Blood Pressure 121/76 H BP Systolic 121 BP Diastolic 76 Pulse Ox Weight Weight: 136 lb 9.6 oz Body Mass Index (BMI) 26.6 Physical Exam Const alert, oriented x3 and no apparent distress General Appearance: cooperative, comfortable and well kempt Orientation / Consciousness: awake and oriented to person Exam Limitations: no limitations HEENT normocephalic Neck full ROM Chest inspection of chest normal Resp normal respiratory effort, normal air movement and no retractions Effort and Inspection: able to speak in complete sentences and symmetric chest movement Cardio regular rate Peripheral Pulses: pulses 2+ throughout GI normal to inspection, nondistended, normoactive bowel sounds Inspection: gravid no CVA tenderness and appearance of the vagina normal External Female Exam: normal appearance of the urethra; Negative for external lesion OB / External & Speculum: external exam normal Manual OB Exam: estimated gestational size appropriate and presentation cephalic Uterus Palpation: Negative for uterus tender Extremity normal to inspection Skin no rashes or lesions noted Neuro deep tendon reflexes 2+ bilaterally and gait normal Motor Exam: strength 5/5 throughout and clonus absent Psych Activity / Motor Behavior: appropriate eye contact Speech: normal speech Labs Labs Labs: Blood Type A POSITIVE Antibody Screen NEGATIVE Hct 36.1 % (37-47) L Hgb 12.3 g/dL (12.0-15.0) Obstetrics Ultrasound Syphilis Total Ab Non-reactive Rubella IgG Antibody Reactive (Nonreactive) Hep Bs Antigen Non-Reactive (Nonreactive) Hepatitis C Antibody Non-Reactive (Nonreactive) Chlamydia DNA (NASIR) Negative (Negative) N.gonorrhoeae DNA (NASIR) Negative (Negative) HIV 1&2 Antibody Non-Reactive (Nonreactive) Glucose 1 Hr 50 gm 119 mg/dL (70-140) Rhogam given: No Assessment & Plan (1) Category II heart rate tracing during labor and delivery: COMMENT: at term. IOL with AROM after IVF bolus PLAN: Plan -admit to for cat 2 tracing at 40.3 weeks. -open to epidural but desires unmedicated. -AROM for IOL method- favorable cervix. GBS negative if no cervical change in 2-4 hours will augment with pitocin with cat [address] Pickard updated on admission, exam and poc. agrees with management will comanage for cat 2 tracing. overall low risk pt.
[2024-01-01] MEDS: LACTATED RINGERS 500 ML 999 ML IV ×3 (14:00→16:06)
[2024-01-01 14:13] LABS: Syphilis Antibodies Non-reactive
[2024-01-01] MEDS: fentaNYL-bupivacaine (epidural) 100 ML BAG EPIDURAL (16:57)
[2024-01-01] MEDS: DiphenhydrAMINE 50 MG/ML Syringe IV (18:09)
[2024-01-01] MEDS: Oxytocin 15 Units/NS 250ml 15 UNITS/250 ML IV.SOLN 83 UNITS IV (18:59)
[2024-01-01] MEDS: Oxytocin 10 UNITS/ML Vial IM (19:15)
--- NOTE | 2024-01-01 19:18 | OP.PCM_ITS ---
Assessment & Plan (1) (spontaneous vaginal delivery): COMMENT: LC IOL at 40.3-cat 2 tracing. boy- Magda Maternal Data Information ALEXIA Calculator Estimated Delivery Date Method Current WG Current Estimate 12/29/23 LMP (Certain) 40w 3d Other Estimates 12/31/23 Ultrasound #1 40w 1d Final ALEXIA: 12/29/23 Final ALEXIA Source: LMP Gestational age: 40.3 Vaginal Delivery Maternal Presentation Maternal Presentation: Medically Indicated Induction Maternal Presentation: pt presented with r/o labor, during triage had multiple late decelerations. AROMd and progressed to fully. with pushing had swelling noted to anterior lip that represented. hands and knees and benadryl 50mg resolved and progressed to fully with urge to push. Type of Induction: Amniotomy Operative Information Date of Procedure: 01/01/24 Surgery / Procedure Performed: Spontaneous Vaginal Delivery Type of Anesthesia: Epidural Estimated Blood Loss: 250 Time of Delivery: 18:52 Findings Description of Procedure: Patient began pushing and delivered the head in the PATRICIO presentation. The head was delivered atraumatically. The anterior and posterior shoulders delivered without complication followed by the rest of the infant and the infant was pl aced on the maternal abdomen. Delayed cord clamping was employed for approximately 2 minutes. Cord was clamped and cut and gentle traction was applied to the cord and the placenta delivered spontaneously immediately following it was noted to be intact with three-vessel cord. The perineum and vagina were inspected and noted to have no laceration. EBL was 250cc. Patient and tolerated delivery well. Presentation: Vertex Amniotic Membrane Rupture Type: Artificial Time of Membrane Rupture: 1436 Amniotic Fluid Description: Clear Placental Delivery Description: Spontaneous Placenta Disposition: [facility] Cord Vessel Description: 3 Vessels Cord Entanglement: None Infant A Gender: Male (1 minute): 8 (5 minute): 9 Delayed Cord Clamping: Yes Post Vaginal Delivery Medications Given After Delivery: IV Pitocin Episiotomy Description: None Laceration: None Complication Complications: None Procedures Urinary/Genital [id number]: [id number] Vaginal Delivery [facility]
[2024-01-01] MEDS: Acetaminophen 500 MG Tablet 1000 MG PO (22:17)
[2024-01-01] MEDS: Benzocaine/Lanolin/Aloe Vera 1 SPRAY EACH TOPICAL (22:17)
[2024-01-02 04:52] VITALS: BP 100/68; PULSE 64; RESP 16; TEMP 36.8; O2SAT 98
[2024-01-02] MEDS: Naproxen 500 MG Tablet PO ×2 (05:02→13:40)
--- NOTE | 2024-01-02 07:47 | PN.OBGYN_ITS ---
Subjective Subjective Patient doing well without complaints. Tolerating PO. Ambulating and voiding without difficulty. Feeding well. Denies chest pain, shortness of breath, calf pain/swelling, fevers, chills, lightheadedness. Objective Data Objective Data Vital Signs: Vital Signs Temp Pulse Resp BP Pulse Ox O2 Del Method 98.2 F 64 16 100/68 98 Room Air 01/02/24 04:52 01/02/24 04:52 01/02/24 04:52 01/02/24 04:52 01/02/24 04:52 01/02/24 04:52 Oxygen Delivery Method Room Air Weight: 136 lb 9.6 oz Body Mass Index (BMI) 26.6 Intake & Output: Intake and Output for Last 24 Hours 12/31/23 01/01/24 01/02/24 23:59 23:59 23:59 Intake Total 2345.83 / 2345.83 Output Total 450 / 450 300 / 300 Balance 1895.83 / 1895.83 -300 / -300 Lab / Micro Data Attestation: I reviewed the patient's lab results. 01/01/24 13:15 Labs: Laboratory Results - last 24 hr 01/01/24 13:15: WBC 7.9, RBC 4.05 L, Hgb 12.3, Hct 36.1 L, MCV 89.1, MCH 30.4, MCHC 34.1, RDW Std Deviation 41.7, RDW Coeff of Robb 12.6, Plt Count 212, MPV 11.4, Immature Gran % (Auto) 0.300, Neut % (Auto) 68.3, Lymph % (Auto) 24.8, [place] % (Auto) 5.3, Eos % (Auto) 0.8, Baso % (Auto) 0.5, Absolute Neuts (auto) 5.4, Absolute Lymphs (auto) 1.95, Nucleated RBC % 0, Syphilis Total Ab Non- reactive, Blood Type A POSITIVE, Antibody Screen NEGATIVE ROS Constitutional Constitutional: Reports systems reviewed and no addt'l complaints, except as documented; Denies anorexia or headache(s) Cardiovascular Cardiovascular: Reports systems reviewed and no addt'l complaints, except as documented; Denies dizziness, dyspnea, nausea or tachypnea Respiratory/Chest Respiratory/Chest: Reports systems reviewed and no addt'l complaints, except as documented; Denies cough, dyspnea, shortness of breath at rest or tachypnea Gastrointestinal Gastrointestinal: Reports systems reviewed and no addt'l complaints, except as documented; Denies abdominal pain, constipation or nausea Genitourinary Genitourinary: Reports systems reviewed and no addt'l complaints, except as documented; Denies burning urination, difficulty urinating, dysuria, urinary frequency or urinary incontinence Musculoskeletal Musculoskeletal: Reports systems reviewed and no addt'l complaints, except as documented Integumentary Integumentary: Reports systems reviewed and no addt'l complaints, except as documented Neurologic Neurologic: Reports systems reviewed and no addt'l complaints, except as documented; Denies abnormal speech, dizziness or headache(s) Psychiatric Psychiatric: Reports systems reviewed and no addt'l complaints, except as documented Endocrine Endocrinology: Reports systems reviewed and no addt'l complaints, except as documented Hematologic/Lymphatic Hematologic/Lymphatic: Reports systems reviewed and no addt'l complaints, except as documented Physical Exam Const alert, oriented x3 and no apparent distress Neck full ROM Resp normal respiratory effort, normal air movement and no retractions Effort and Inspection: able to speak in complete sentences and symmetric chest movement GI soft to palpation Bladder / Kidney Exam: bladder normal to palpation Uterus Palpation: uterus fundus firm Extremity normal to inspection and full ROM Psych mental status grossly normal, thought process normal and cooperative Assessment & Plan (1) (spontaneous vaginal delivery): COMMENT: LC IOL at 40.3-cat 2 tracing. boy- Magda PLAN: s/p PPD # 1 1. routine post delivery care 2. breast feeding- support given 3. rh positive 4. rubella immune 5. Discharge Home Charges/Coding Multi Select Codes Urinary/Genital Urinary/Genital CPT Codes: No Charge
--- NOTE | 2024-01-02 07:49 | DCINST_ITS ---
Discharge Instructions Diet Discharge Diet: No restrictions Activity Discharge Activity: Return to Normal Activity May resume sexual activity in: 6-8 weeks Dressing / Incision Call your doctor if you observe: Fever of 101 or Higher, Coldness, Increased Pain, Numbness or Tingling, Change in Color, Inability to urinate, Inability to have a bowel movement, Using more than 1 pad per hour, Shortness of breath, Dizziness, Fainting spells, Swelling in the ankles, Chest pain, Increased palpitations (irregular heartbeat), Calf discomfort and Uncontrolled pain Follow Up Care Please Follow Up With: Georgia Craft CNM When: Please call the office to schedule your follow up appointment in 6 weeks. If you had high blood pressure please call to schedule an appointment in 2 weeks. Test Results: Test results from this visit will be discussed in further detail at your follow- up appointment, if applicable. Discharge Plan Admission Admit Date/Time: 01/01/24 12:25 Attending Provider: Kelsey Florentino Primary Care Provider: Jose Roberto Merchant Discharge Orders/Prescriptions Prescriptions: No Action prenat.vits,lacey,[id number] Tablet 1 tab PO DAILY promethazine 12.5 mg tablet 12.5 mg PO Q6H PRN (Reason: nausea and vomiting) Qty: 60 3RF ondansetron 4 mg tablet,disintegrating 4 mg PO Q4H PRN (Reason: nausea and vomiting) Qty: 30 2RF Referrals / Follow Up: Jose Roberto Merchant MD [Primary Care Provider] - Disposition Disposition (needs filled in before D/C Order can be placed): Home, Self Care
[2024-01-02 08:10] VITALS: BP 105/81; PULSE 74; RESP 14; TEMP 36.6; O2SAT 98
[2024-01-02] MEDS: Senna/Docusate Sodium 1 Tablet PO (10:06)
[2024-01-02 11:15] VITALS: BP 114/85; PULSE 79; RESP 16; TEMP 36.6; O2SAT 98
[2024-01-02 16:50] VITALS: BP 105/63; PULSE 70; RESP 16; TEMP 36.5; O2SAT 98
== END 2024-01-02 19:50 | disposition home or self-care (01) | DRG 807 ==
LOC: WPOUT 12:31 → WP 12:32
PROVIDERS: Admitting Provider Registered Nurse; PCP Family Medicine; Visit Provider Registered Nurse
DX: O76 Abnormality in fetal heart rate and rhythm complicating labor and delivery (principal); Z37.0 Single live birth; O26.23 Pregnancy care for patient with recurrent pregnancy loss, third trimester; Z3A.40 40 weeks gestation of pregnancy
CPT/HCPCS: 59025; 59050; 85025; 86780; 86850; 86900; 86901; 99221; J7120; G0378